=== PATIENT | female | born 1960 | race Caucasian/White ===

== ENCOUNTER 2023-12-18 11:31 | Emergency (ER) | payer MEDICARE, SELFPAY ==
[2023-12-18 11:33] VITALS: BP 141/93
--- NOTE | 2023-12-18 12:35 | ED.GENMED ---
History of Present Illness
General
Chief Complaint: Breathing Problem
Source: patient
Time Seen by Provider: 12/18/23 12:16
Travel History
Have you had any contact with someone who has COVID-19?: No
Do you have any symptoms of coronavirus? Fever > 100 degrees, chills, cough, shortness of breath, sore throat, loss of taste or smell, muscle aches, or headache?: No
History of Present Illness
History of Present Illness:
63-year-old female smoker presents with cough leg swelling denies fever or chills. This started several days ago. She was seen at the urgent care thought to have bronchitis. She was prescribed Zithromax steroids and inhaler. She noted more cough
and leg swelling today. Seen again at the urgent care and then sent here for further evaluation.
Phy Exam
Physical Exam
Physical Exam:
General: Well-appearing female no acute respiratory distress
HEENT: Normocephalic atraumatic
Heart: Regular rate and rhythm no murmurs
Lungs: No obvious wheeze
Extremities: No cyanosis or edema
Skin: Warm no rash
Scores
Heart Failure Risk
Heart Failure Risk Score: Not Applicable
Course
Orders/Labs/Results
Orders:
Orders
12/18/23 12:30
CR Chest - 2 Views Urgent
Comment:
Reason For Exam: cough, sob
12/18/23 12:45
Complete Blood Count/With Diff Urgent
Comprehensive Metabolic Panel Urgent
NT-proBNP Urgent
Abnormal Lab Results
12/18/23
12:45
WBC 12.9 H 10^3/uL
(4.8-10.8)
MCH 31.2 H pg
(27.0-31.0)
Abs Immat Gran (auto) 0.1 H 10^3/uL
(0-0.05)
Absolute Neuts (auto) 8.0 H 10^3/uL
(1.4-6.5)
Absolute Lymphs (auto) 3.9 H 10^3/uL
(1.2-3.4)
Absolute Monos (auto) 0.8 H 10^3/uL
(0.1-0.6)
Immature Gran % 0.6 H %
(0-0.5)
BUN 22 H mg/dl
(7-17)
12/18/23 12:45
12/18/23 12:45
Vital Signs
Initial and Last Documented VS:
Initial Vital Signs
Temp Pulse Resp BP Pulse Ox
98.1 F 66 18 141/93 99
12/18/23 11:33 12/18/23 11:33 12/18/23 11:33 12/18/23 11:33 12/18/23 11:33
Last Documented Vital Signs
Temp Pulse Resp BP Pulse Ox
98.1 F 66 18 141/93 99
12/18/23 11:33 12/18/23 11:33 12/18/23 11:33 12/18/23 11:33 12/18/23 11:33
MDM/Problems Addressed
Differential Diagnosis Includes:
Cough leg swelling shortness of breath. Consider bronchitis. No obvious edema on exam. Will obtain chest x-ray. Labs pending including BNP.
*Critical Care Note
Total Time (30-74mins, 75-104mins- exclusive of procedures): Not Applicable
Update Note
Update Note:
Chest x-ray personally visualized which is negative. BNP normal value. Patient had already started treatment for bronchitis with Zithromax steroid and inhaler. I see no reason to change this regimen. No indication for admission to hospital.
Stable for discharge home
ED Attending Note
-
Portions of this chart may have been created with voice recognition software.� Occasional wrong word or��sound alike� substitutions may have occurred due to the inherent limitations of voice recognition software.
Discharge Plan
Departure
Patient Disposition: Home (Routine Discharge)
Date of Disposition: 12/18/23
Time of Disposition: 14:38
Patient with high blood pressure during this ER visit?: No
Discharge Problem:
Acute bronchitis
Instructions: Acute Bronchitis, Adult (DC)
Referrals:
PRIVATE,PHYSICIAN [Family Provider] -
Activity Restrictions/Additional Instructions:
Continue current medication regimen of the antibiotic, steroid and inhaler. Return here for worsening symptoms otherwise follow-up
Interventions
Interventions:
*ED COVID-19 Vaccine History Last Done: 12/18/23 11:41
ED- Cardiac Assessment Last Done: 12/18/23 13:20
ED- Pulmonary Assessment Last Done: 12/18/23 13:20
Discharge Date and Time
Print Language: URDU
[2023-12-18 12:56] LABS: % Basophils 0.5 % (0-2); % Eosinophils 0.5 % (0-6); % Immature Granulocytes 0.6 % (0-0.5); % Lymphocytes 30.4 % (20.5-51.1); % Monocytes 5.8 % (1.7-9.3); % Neutrophils 62.2 % (42.2-75.2); Absolute Basophils 0.1 10^3/uL (0-0.2); Absolute Eosinophils 0.1 10^3/uL (0-0.7); Absolute Immature Granulocytes 0.1 10^3/uL (0-0.05); Absolute Lymphocytes 3.9 10^3/uL (1.2-3.4); Absolute Monocytes 0.8 10^3/uL (0.1-0.6); Hemoglobin 13.8 g/dL (12.0-16.0); Mean Corp Hgb Conc. 33.7 g/dL (33.0-37.0); Mean Corpuscular Hgb 31.2 pg (27.0-31.0); Mean Corpuscular Volume 92.6 fL (81.0-99.0); Mean Platelet Volume 10.2 fL (7.4-10.4); Nucleated Red Blood Cells % 0 %; Platelet Count 234 10^3/uL (130-400); Red Blood Cell Count 4.43 10^6/uL (4.20-5.40); Red Cell Dist. Width 12.9 % (11.5-14.5); White Blood Cell Count 12.9 10^3/uL (4.8-10.8)
[2023-12-18 13:12] LABS: ALT (SGPT) 25 U/L (0-35); AST (SGOT) 20 U/L (14-36); Albumin 4.2 g/dl (3.5-5.0); Alkaline Phosphatase 89 U/L (38-126); Blood Urea Nitrogen 22 mg/dl (7-17); Calcium 9.7 mg/dl (8.4-10.2); Carbon Dioxide 27 mmol/L (22-30); Chloride 106 mmol/L (98-107); Glucose 84 mg/dl (70-99); Potassium 4.3 mmol/L (3.5-5.1); Sodium 137 mmol/L (135-145); Total Bilirubin 0.3 mg/dl (0.2-1.3); Total Protein 6.9 g/dl (6.3-8.2); eGFR > 60.00
[2023-12-18 13:18] LABS: NT-proBNP 321 pg/ml
[2023-12-18 15:14] VITALS: BP 138/88
== END 2023-12-18 15:16 | disposition home or self-care (01) ==
LOC: EMR 11:31
PROVIDERS: Physician Assistant; EMERGENCY PHYSICIAN Emergency Medicine
DX: J20.9 Acute bronchitis, unspecified (principal); F17.200 Nicotine dependence, unspecified, uncomplicated
CPT/HCPCS: 99284; 71046; 80053; 83880; 85025